=== PATIENT | female | born 1980 | race American Indian/Alaskan Native ===

== ENCOUNTER 2017-12-08 06:46 | Day surgery (SDC) | payer BC ==
[2017-12-03 12:31] LABS: Basophils # (Auto) 0.1 K/mm3 (0.0-0.1); Basophils % (Auto) 1.2 % (0.0-1.8); Eosinophils # (Auto) 0.1 K/mm3 (0.0-0.4); Eosinophils % (Auto) 2.4 % (0.0-4.3); Hematocrit 32.7 % (30.3-42.9); Hemoglobin 10.8 gm/dl (10.1-14.3); Lymphocytes # (Auto) 2.2 K/mm3 (1.2-5.4); Lymphocytes % (Auto) 38.5 % (13.4-35.0); Mean Corpuscular HGB Conc 33 % (30-34); Mean Corpuscular Hemoglobin 28 pg (28-32); Mean Corpuscular Volume 85 fl (79-97); Monocytes # (Auto) 0.3 K/mm3 (0.0-0.8); Monocytes % (Auto) 6.1 % (0.0-7.3); Platelet Count 394 K/mm3 (140-440); Red Blood Count 3.84 M/mm3 (3.65-5.03); Red Cell Distribution Width 14.5 % (13.2-15.2)
[2017-12-03 12:46] LABS: BUN/Creatinine Ratio 13; Blood Urea Nitrogen 10 mg/dL (7-17); Calcium 8.8 mg/dL (8.4-10.2); Hemolysis Index 0
--- NOTE | 2017-12-03 17:27 | Anesthesia Consultation ---
Anesthesia Consult and Med Hx - Airway Anesthetic Teeth Evaluation: Good ROM Head & Neck: Adequate Mental/Hyoid Distance: Adequate Mallampati Class: Class II Intubation Access Assessment: Good - Pulmonary Exam CTA: Yes - Cardiac Exam Cardiac Exam: RRR - Pre-Operative Health Status ASA Pre-Surgery Classification: ASA3 Proposed Anesthetic Plan: General - Pulmonary Hx Sleep Apnea: Yes ("borderline" No CPAP) - Cardiovascular System Hx Hypertension: Yes (Over 10 yrs) - Central Nervous System Hx Psychiatric Problems: No - Hematic Hx Anemia: Yes (past hx, when taking chemo) - Other Systems Hx Cancer: Yes (Lymphoma dx 2014; finished chemo 2015; in remission)
--- NOTE | 2017-12-07 19:22 | History and Physical Report ---
History of Present Illness Date of examination: 12/03/17 History of present illness: This is a 37 year-old female who desires fertility. She has expeirenced excessive and frequent irregular menstruation that has been unresponsive to previous medical/hormonal therapy and now desires to proceed with cervical dilation, diagnostic hysteroscopy, uterine curettage and other indicated procedures Past History : 1 Para: 0 Aborta: 1 Elect. 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 of genital herpes: yes Partner hx. of genital herpes: no Hx of STD: gonorrhea Active Medications (reviewed today): IBUPROFEN 800 MG ORAL TABLET (IBUPROFEN) 1 po TID (PRN) OXYCODONE-ACETAMINOPHEN 5-325 MG ORAL TABLET (OXYCODONE-ACETAMINOPHEN) 1-2po q6h ALBUTEROL SULFATE (2.5 MG/3ML) 0.083% INHALATION NEBULIZATION SOLUTION ( ALBUTEROL SULFATE) TAYTULLA CAPSULE (NORETHIN TALI-ETH ESTRAD-FE CAPS) BENZONATATE CAPSULE (BENZONATATE CAPS) CYCLOBENZAPRINE HCL TABLET (CYCLOBENZAPRINE HCL TABS) LABETALOL HCL 100 MG ORAL TABLET (LABETALOL HCL) 1 tab twice q d FLONASE 50 MCG/ACT NASAL SUSPENSION (FLUTICASONE PROPIONATE) 2 sprays, each nostril x1 qd HYDROCHLOROTHIAZIDE 25 MG ORAL TABLET (HYDROCHLOROTHIAZIDE) 1 po qd Current Allergies (reviewed today): No known allergies Past Medical History: Reviewed history from 11/16/2017 and no changes required: Hypertension Lymphoma s/p chem 07/23/15-12/26/15 Blood Transfusion x2 Past Surgical History: Reviewed history from 11/23/2008 and no changes required: Appendectomy (06/15/2015) port placement and removal Family History Summary: Other family member - Has No Family History of Uterine Cancer - Entered On: 12/07 Other family member - Has No Family History of Spontaneous DVT-PE - Entered On: 12/07/2017 Other family member - Has No Family History of Small Bowel Cancer - Entered On: 12/07/2017 Other family member - Has No Family History of Pancreatic Cancer - Entered On: Other family member - Has No Family History of Ovarvian Cancer - Entered On: Other family member - Has No Family History of Kidney/Urinary Tract Cancer - Entered On: 12/07/2017 Other family member - Has No Family History of Colon Cancer - Entered On: 2017 Other family member - Has No Family History of Brain Cancer - Entered On: 2017 Other family member - Has No Family History of Biliary Tract Cancer - Entered On : 12/07/2017 MGM - Has Family History of Stomach Cancer - Great - Entered On: 12/07/2017 Uncle - Has Family History of Lung Cancer - maternal - Entered On: 12/07/2017 General Comments - FH: Family History Breast Cancer- maternal and paternal aunts No Family History of Colon Cancer No Family History of Ovarvian Cancer No Family History of DVT/PE on OCP Social History: Reviewed history from 01/23/2010 and no changes required: Patient is Smoking History: Patient has never smoked. Risk Factors: Smoked Tobacco Use: Never smoker PAP Smear History: Date of Last PAP Smear: 12/03/2017 Results: 01/2016 Previous Tobacco Use: Signed On - 11/02/2017 Smoked Tobacco Use: Never smoker Smokeless Tobacco Use: Never Passive smoke exposure: no Drug use: no HIV high-risk behavior: no Caffeine use: 1 drinks per day Previous Alcohol Use: Signed On - 11/02/2017 Alcohol use: no Exercise: yes Times per week: 3 Seatbelt use: 100 % Mammogram History: Date of Last Mammogram: 10/27/2016 PAP Smear History: Date of Last PAP Smear: 12/03/2017 Results: 01/2016 Review of Systems General Denies fever, chills, sweats, anorexia, fatigue, weakness, malaise, weight loss and sleep disorder. Complains of abnormal vaginal bleeding. Denies vaginal discharge, incontinence, dysuria, hematuria, urinary frequency, amenorrhea, menorrhagia, pelvic pain, genital sores, decreased libido , painful periods, painful sex, urinary urgency, hot flashes, vaginal dryness, vaginal itching and vaginal odor. Endo Denies cold intolerance, heat intolerance, polydipsia, polyphagia, polyuria and unusual weight change. Heme Denies abnormal bruising, bleeding and enlarged lymph nodes. Physical Exam Appearance: well developed, well nourished, no acute distress Other Exams Lungs: no rales, rhonchi, or wheezes Heart: S1, S2, no murmur, rub, or gallop Abdomen: soft, non-tender, no masses, Appearance: obese Genitourinary Exam Vulva: normal, no lesions or discharge Urethral meatus: normal size and location, no lesions or discharge Urethra: no discharge Bladder: no cystocele Vagina: normal appearance, no discharge, lesions. No evidence of cystocele or rectocele. Cervix: normal appearance, no lesions, no discharge Uterus: unable to palpate Adnexa: unable to palpate due to obesity Impression & Recommendations: Problem # 1: Excessive and frequent menstruation with irregular cycle (ICD- 626.6) (GSI95-F81.1) Consent reviewed and signed . Possible laparoscopy or laparotomy explained to patient.The risks and alternatives for this surgery were reviewed with the patient. She was informed of possible bleeding, infection, injury to bowel, bladder, ureters or other adjacent organs. She was informed she may require a hysterectomy if bleeding cannot be controlled. The patient was instructed/ informed the following: The normal length of hospital stay for this procedure. Nothing to eat or drink after midnight the evening prior to surgery. Clear liquids the afternoon prior to surgery. Pre-op instruction sheets given. Wound care instructions given. Infection precautions reviewed, patient to call for any signs or symptoms of infection. The usual discomforts associated with this procedure were detailed. Proper use of pain medicines was reviewed. Patient was given ample opportunity to have all her questions answered before signing informed consent. Patient voiced understanding and agrees with plan of care Counseling and coordination of care was >50% of the face to face time. The total face to face time for this visit was ~40 minutes. Medications Added to Medication List This Visit: 1) Ibuprofen 800 Mg Oral Tablet (Ibuprofen) .... 1 po tid (prn) 2) Oxycodone-acetaminophen 5-325 Mg Oral Tablet (Oxycodone-acetaminophen) .... 1-2po q6h Prescriptions: IBUPROFEN 800 MG ORAL TABLET (IBUPROFEN) 1 po TID (PRN) #30 x 0 Entered and Authorized by: Ashtyn Pemberton MD Method used: Print then Give to Patient RxID: [id number] OXYCODONE-ACETAMINOPHEN 5-325 MG ORAL TABLET (OXYCODONE-ACETAMINOPHEN) 1-2po q6h #10 Tablet x 0 Entered and Authorized by: Ashtyn Pemberton MD Method used: Print then Give to Patient RxID: [id number] Medications and Allergies Allergies Allergy/AdvReac Type Severity Reaction Status Date / Time No Known Allergies Allergy Unverified 12/03/17 09:44 Home Medications Medication Instructions Recorded Confirmed Last Taken Type Albuterol Sulfate [Ventolin Hfa] 2 puff IH PRN PRN 12/03/17 12/03/17 Unknown History Benzonatate 200 mg PO PRN PRN 12/03/17 12/03/17 Unknown History Cyclobenzaprine [Flexeril] 10 mg PO TID PRN 12/03/17 12/03/17 Unknown History Fluticasone [Flonase] 1 spray NS QDAY 12/03/17 12/03/17 Unknown History Hydrochlorothiazide [HCTZ] 25 mg PO DAILY 12/03/17 12/03/17 Unknown History Ibuprofen 800 mg PO PRN PRN 12/03/17 12/03/17 Unknown History Labetalol HCl 100 mg PO BID 12/03/17 12/03/17 Unknown History Norethindrone-E.estradiol-Iron 1 each PO DAILY 12/03/17 12/03/17 Unknown History [Taytulla 1 mg-20 Mcg Capsule] Active Meds: Active Medications Lactated Ringer's (Lactated Ringers) 1,000 mls @ 42 mls/hr IV DIRECT NAOMI Cefazolin Sodium (Ancef/Sterile Water 2 Gm/20 Ml) 2 gm in 20 mls @ 80 mls/hr IV PREOP NR; Protocol Exam Vital Signs Temp Pulse Resp BP 98.1 F 64 18 140/88 12/03/17 12:05 12/03/17 12:05 12/03/17 12:05 12/03/17 12:05 Results - Labs 12/03/17 12:10 12/03/17 12:10 Assessment and Plan - Patient Problems (1) Excessive and frequent menstruation with irregular cycle Status: Acute
[~2017-12-08 06:46] MED LIST: LACTATED RINGERS 1,000 ML IV SCH; VERSED IV NR
[2017-12-08] MEDS ORDERED: ANCEF/STERILE WATER 2 GM/20 ML 2 GM/20 ML SYRINGE IV NR (07:00)
[2017-12-08] MEDS ORDERED: TORADOL IV PRN (07:14)
[2017-12-08] MEDS ORDERED: ZOFRAN IV PRN (07:14)
[2017-12-08] MEDS ORDERED: PERCOCET 5/325 PO PRN (07:14)
[2017-12-08] MEDS ORDERED: DILAUDID IV PRN (07:14)
[2017-12-08] MEDS ORDERED: NACL BACTERIOSTATIC INFILTRATI ONE (08:00)
[2017-12-08] MEDS ORDERED: VERSED IV NR (08:00)
--- NOTE | 2017-12-08 08:30 | Anesthesia Day of Surgery ---
Anesthesia Day of Surgery - Day of Surgery Patient Examined: Yes Patient H&P Reviewed: Yes Patient is NPO: Yes Beta Blockers: Yes
[2017-12-08] MEDS ORDERED: DIPRIVAN 10 MG/ML IV ONE (09:00)
[2017-12-08] MEDS ORDERED: XYLOCAINE MPF 2% ONE (09:01)
[2017-12-08] MEDS ORDERED: SUBLIMAZE ONE (09:01)
[2017-12-08] MEDS ORDERED: NACL 0.9% IR ONE (09:25)
[2017-12-08] MEDS ORDERED: ZOFRAN ONE (09:32)
[2017-12-08] MEDS ORDERED: TORADOL ONE (09:32)
[2017-12-08] MEDS ORDERED: SILVER NITRATE TP ONE ×2 (09:37→11:23)
--- NOTE | 2017-12-08 10:00 | Short Stay Summary ---
Short Stay Documentation Date of service: 12/08/17 Narrative H&P: see H&P - Allergies and Medications Current Medications: Allergies adhesive tape Adverse Reaction (Verified 12/08/17 09:05) Rash Home Medications Medication Instructions Recorded Confirmed Last Taken Type Albuterol Sulfate [Ventolin Hfa] 2 puff IH PRN PRN 12/03/17 12/08/17 12/07/17 History Benzonatate 200 mg PO PRN PRN 12/03/17 12/08/17 6 Months Ago History ~06/10/17 Cyclobenzaprine [Flexeril] 10 mg PO TID PRN 12/03/17 12/08/17 7 Months Ago History ~05/10/17 Fluticasone [Flonase] 1 spray NS QDAY 12/03/17 12/08/17 3 Months Ago History ~09/10/17 Hydrochlorothiazide [HCTZ] 25 mg PO DAILY 12/03/17 12/08/17 12/07/17 History Ibuprofen 800 mg PO PRN PRN 12/03/17 12/08/17 1 Month Ago History ~11/08/17 Labetalol HCl 100 mg PO BID 12/03/17 12/08/17 12/08/17 05:00 History Norethindrone-E.estradiol-Iron 1 each PO DAILY 12/03/17 12/08/17 12/07/17 History [Taytulla 1 mg-20 Mcg Capsule] Active Medications Hydromorphone HCl (Dilaudid) 0.25 mg IV Q10MIN PRN PRN Reason: Pain, Moderate (4-6) Stop: 12/08/17 16:00 Lactated Ringer's (Lactated Ringers) 1,000 mls @ 42 mls/hr IV DIRECT NAOMI Last Admin: 12/08/17 08:10 Dose: 42 mls/hr Cefazolin Sodium (Ancef/Sterile Water 2 Gm/20 Ml) 2 gm in 20 mls @ 80 mls/hr IV PREOP NR; Protocol Stop: 12/08/17 23:59 Ketorolac Tromethamine (Toradol) 30 mg IV ONCE PRN PRN Reason: Pain, Moderate (4-6) Stop: 12/08/17 16:00 Midazolam HCl (Versed) 2 mg IV PREOP NR Stop: 12/08/17 23:59 Last Admin: 12/08/17 08:18 Dose: 2 mg Ondansetron HCl (Zofran) 4 mg IV ONCE PRN PRN Reason: Nausea And Vomiting Stop: 12/08/17 15:00 Oxycodone/Acetaminophen (Percocet 5/325) 1 tab PO ONCE PRN PRN Reason: Pain, Moderate (4-6) Stop: 12/08/17 15:00 - Brief post op/procedure progress note Date of procedure: 12/08/17 Pre-op diagnosis: Excessive and frequent irregular menstruation Post-op diagnosis: same Procedure: Diagnostic hysteroscopy with cervical dilation and uterine curettage Anesthesia: GETA Findings: Thick but grossly normal endometrial cavity. Grossly normal tubal ostia Surgeon: VICKY AGUDELO Estimated blood loss: minimal Specimen disposition: to lab Condition: stable - Hospital course Hospital course: Unremarkable - Disposition Condition at discharge: Good Disposition: DC-[id number] TO HOME OR SELFCARE - Discharge Diagnoses (1) Excessive and frequent menstruation with irregular cycle Status: Acute Short Stay Discharge Plan Activity: other (no sex) Weight Bearing Status: Full Weight Bearing Diet: regular Follow up with: SOFYA LEE [Other] - 7 Days VICKY AGUDELO MD [Staff Physician] - (As scheduled)
--- NOTE | 2017-12-08 10:08 | Operative Report ---
Operative Report Operative Report: Date: 12/08/2017 Preoperative diagnosis: 1. Excessive frequent irregular menstruation unresponsive to previous hormonal and medical therapy 2. Desires fertility Postoperative diagnosis: 1. 1. Excessive frequent irregular menstruation unresponsive to previous hormonal and medical therapy 2. Desires fertility . Procedure: 1. Cervical dilation 2. Diagnostic hysteroscopy 3. Uterine curettage Surgeon: Ashtyn Pemberton MD Professor Of Law: [] Anesthesiologist: Heath Shields M.D. Anesthesia: Gen. endotracheal anesthesia EBL: Minimum Findings: Uterine cavity length: 9 centimeters Distention medium: Normal saline Fluid deficit: 0 mL Procedure: After risks, benefits, complications, consequences and alternatives for this procedure were explained, and patient voiced her understanding and her desire to proceed, she is taken to the OR and placed in the supine position. General anesthesia was induced. She was placed in the dorsolithotomy position. Exam under anesthesia was unremarkable. She was then prepped and draped in usual sterile fashion. Timeout was performed. The bladder was drained of minimum clear yellow urine with a red rubber catheter. An operative speculum was introduced was introduced into the vagina. The anterior lip of the cervix was grasped with single-tooth tenaculum and the uterus was sounded to 9 cm. The cervix was progressively dilated to allow the operative hysteroscope. The above findings were noted. Uterine curettage was then performed. The hysteroscope was reintroduced into the uterus. No obvious evidence of perforation was noted. The hysteroscope was then removed. Slight bleeding from the internal os of the cervix was made hemostatic with silver nitrateThe procedure was ended. Once hemostasis was noted, the speculum and the tenaculum were removed. Hemostasis was noted. No bleeding from the tenaculum site was noted. Patient tolerated procedure well and taken to recovery room in stable condition
--- NOTE | 2017-12-08 10:15 | Post Anesthesia Evaluation ---
- Post Anesthesia Evaluation Patient Participated: Yes Airway Patent: Yes Stable Respiratory Function: Yes Nausea/Vomiting: No Temp > 96.8F: Yes Pain Manageable: Yes Adequeate Hydration: Yes Anesthesia Complications: No Block Receding Appropriately: Not Applicable Patient on Ventilator: No
[2017-12-08 11:40] VITALS: BP 128/68
== END 2017-12-08 11:13 | disposition home or self-care (01) ==
LOC: OR 06:46
PROVIDERS: ATTEND Obstetrics & Gynecology
DX: N85.8 Other specified noninflammatory disorders of uterus (principal); I10 Essential (primary) hypertension; Z98.890 Other specified postprocedural states; Z91.048 Other nonmedicinal substance allergy status; Z92.21 Personal history of antineoplastic chemotherapy; Z85.72 Personal history of non-Hodgkin lymphomas
CPT/HCPCS: 36415; 58558; 80048; 81025; 85025; 88305; A4217; J0690; J1885; J2250; J2405; J2704; J3010; J7120